=== PATIENT | male | born 1995 ===

== ENCOUNTER 2019-05-04 16:22 | Emergency (ER) | payer SELFPAY ==
[~2019-05-04] VITALS: Ht 175.3 cm; Wt 100.0 kg
[2019-05-04 17:39] VITALS: BP 118/76
== END 2019-05-04 18:15 | disposition home or self-care (01) ==
LOC: EMS 16:23
DX: S01.81XD Laceration without foreign body of other part of head, subsequent encounter (principal); V98.8XXD Other specified transport accidents, subsequent encounter